=== PATIENT | female | born 1990 | race Caucasian/White ===

== ENCOUNTER 2020-03-11 10:59 | Day surgery (SDC) | payer OTHER ==
[~2020-03-11] VITALS: Ht 165.1 cm; Wt 56.2 kg
[~2020-03-11 10:59] MED LIST: PROP10 PO; Ranitidine HCl150 M1 PO
--- NOTE | 2020-03-11 12:35 | NUR ---
03/11/20 1235 Lizzy Bartlett PT. WAS UPDATED THAT THE DRMaddie WAS RUNNING A LITTLE BEHIND. PT. VERBALIZES DOING OK. PT. GIVEN A WARM BLANKET.
--- NOTE | 2020-03-11 14:19 | NUR ---
03/11/20 1419 Lizzy Bartlett PT. WITH BRADYCARDIA WHILE ADVANCING SCOPE DURING COLONOSCOPY. DR AWARE.HR TO 44. DR. STOPPED & CHANGED OUT TO A PEDS SCOPE. HR BACK UP DURING REST OF COLONOSCOPY.
== END 2020-03-11 14:32 | disposition home or self-care (01) ==
LOC: ORSCSDS 10:59
PROVIDERS: Surgery
PROC: 0DJD8ZZ Inspection of Lower Intestinal Tract, Via Natural or Artificial Opening Endoscopic (ICD-10-PCS; principal; 2020-03-11 12:15)
DX: Z80.0 Family history of malignant neoplasm of digestive organs (principal); K64.8 Other hemorrhoids; Z79.899 Other long term (current) drug therapy
CPT/HCPCS: J2704; J7120